=== PATIENT | female | born 1955 | race Hispanic/Latino ===

== ENCOUNTER 2019-03-23 14:51 | Emergency (ER) | payer OTHER ==
[~2019-03-23] VITALS: Ht 157.5 cm; Wt 79.5 kg
[2019-03-23] MEDS ORDERED: PERCOCET 5/325M1 TAB PO (16:08)
[2019-03-23 16:15] VITALS: BP 119/67
== END 2019-03-23 16:15 | disposition home or self-care (01) | DRG 563 ==
LOC: ED 14:51
DX: S42.291A Other displaced fracture of upper end of right humerus, initial encounter for closed fracture (principal); S50.312A Abrasion of left elbow, initial encounter; S80.212A Abrasion, left knee, initial encounter; W01.0XXA Fall on same level from slipping, tripping and stumbling without subsequent striking against object, initial encounter; Y92.219 Unspecified school as the place of occurrence of the external cause